=== PATIENT | female | born 1955 | race Caucasian/White ===

== ENCOUNTER 2016-06-17 14:53 | Emergency (ER) | payer OTHER ==
[~2016-06-17] VITALS: Ht 157.5 cm; Wt 98.0 kg
[2016-06-17 15:01] VITALS: Ht 157.5 cm; Wt 98.0 kg
--- NOTE | 2016-06-17 16:51 | ERD ---
ER Documentation Chief Complaint Date/Time DATE: 06/17/16 TIME: 16:47 Chief Complaint rash on the face allergic since and received atb in today HPI 60-year-old female patient with no significant past medical history presents to the ED complaining of a rash that started 5 days ago. Patient's son was with her at this time and stated that they followed up with a primary care physician and diagnosed her with rosacea. Patient has been taking doxycycline and metronidazole and states that the rash has been getting worse. Denies any sun exposure. States that it is very itchy. Son interpreted and states that since the rash got worse earlier today and it is getting crusty, they followed up with an urgent care today and was prescribed Keflex, Bactrim and Mupirocin. States that he wanted a second opinion at an ER to see a pest control service sales agent immediately and therefore presents here for further evaluation. Denies any fever, chills, headache, eye pain, blurred vision, diplopia, nausea, vomiting. ROS All systems reviewed and are negative except as per history of present illness. Allergies Allergies: Coded Allergies: No Known Allergy (Unverified , 06/17/16) Physical Exam Vitals Vital Signs Date Time Temp Pulse Resp B/P Pulse Ox O2 Delivery O2 Flow Rate FiO2 06/17/16 15:01 99.6 80 18 127/64 98 Physical Exam Const: Adj-iop-[id number], well-nourished. In no acute distress. Head: Atraumatic, normocephalic Eyes: Normal Conjunctiva without injection ENT: Normal external ear, nose and mouth. Neck: Full range of motion. No meningismus. Resp: Clear to auscultation bilaterally. No wheezing, rhonchi, rales, or crackles. No accessory muscle use. No retractions. Cardio: Regular rate and rhythm, no murmurs Skin: No petechiae, purpura. Honey crusted lesions noted on the chin region, blanching and some surrounding the forehead bilateral cheeks and chin. Slight purulent discharge noted. No bleeding noted. No fluctuance or induration. No lymphatic streaking. Back: No midline tenderness. No CVA tenderness. Ext: No cyanosis, or edema. Cap refill less than 2 seconds. Distal pulses intact bilaterally. Neur: Awake and alert. Normal gait and coordination. Muscle strength 5/5. Sensation intact bilaterally. Psych: Normal Mood and Affect Procedures/MDM This is a 60-year-old female patient with no significant past medical history presents the ED complaining of a rosacea flare. Patient is afebrile and nontoxic-appearing. I discussed with the patient and her son that she should discontinue taking doxycycline and metronidazole as these medications can worsen her rash due to the sun exposure. I stated that the Bactrim, Keflex and Mupirocin is sufficient medications for outpatient treatment. Patient strictly instructed to follow-up with a pest control service sales agent for further evaluation and treatment. Low suspicion for periorbital cellulitis. Low suspicion for scabies , SJS/TEN, erythema multiforme, sepsis, cellulitis, necrotizing fascitis, gangrene, meningococcemia or other emergent conditions. This case was discussed with my supervising physician, Dr. Carcamo who agreed with the management and discharge plan. Discharge medications: Please fill the prescription for Bactrim, Keflex, mupirocin. Follow up with primary care physician in 1-2 days for a referral to see a pest control service sales agent. Instructed patient to return to the ED sooner for any worsening symptoms. Patient's questions were answered. Patient understood and agreed with discharge plan. Patient discharged stable. Departure Diagnosis: Primary Impression: Rosacea Condition: Stable Patient Instructions: What Is Rosacea?, Treating Rosacea, Rosacea Referrals: [facility] YOU HAVE RECEIVED A MEDICAL SCREENING EXAM AND THE RESULTS INDICATE THAT YOU DO NOT HAVE A CONDITION THAT REQUIRES URGENT TREATMENT IN THE EMERGENCY DEPARTMENT. FURTHER EVALUATION AND TREATMENT OF YOUR CONDITION CAN WAIT UNTIL YOU ARE SEEN IN YOUR DOCTORS OFFICE WITHIN THE NEXT 1-2 DAYS. IT IS YOUR RESPONSIBILITY TO MAKE AN APPOINTMENT FOR FOL- CARE. IF YOU HAVE A PRIMARY DOCTOR --you should call your primary doctor and schedule an appointment IF YOU DO NOT HAVE A PRIMARY DOCTOR YOU CAN CALL OUR PHYSICIAN REFERRAL HOTLINE AT IF YOU CAN NOT AFFORD TO SEE A PHYSICIAN YOU CAN CHOSE FROM THE FOLLOWING [facility] CLINICS [facility] [address] [facility] [address] [facility] [address] [facility] [address] [facility] [address] [facility]. [facility]. [address] [facility]. [facility] YOU HAVE RECEIVED A MEDICAL SCREENING EXAM AND THE RESULTS INDICATE THAT YOU DO NOT HAVE A CONDITION THAT REQUIRES URGENT TREATMENT IN THE EMERGENCY DEPARTMENT. FURTHER EVALUATION AND TREATMENT OF YOUR CONDITION CAN WAIT UNTIL YOU ARE SEEN IN YOUR DOCTORS OFFICE WITHIN THE NEXT 1-2 DAYS. IT IS YOUR RESPONSIBILITY TO MAKE AN APPOINTMENT FOR FOLOW-UP CARE. IF YOU HAVE A PRIMARY DOCTOR --you should call your primary doctor and schedule and appointment IF YOU DO NOT HAVE A PRIMARY DOCTOR YOU CAN CALL OUR PHYSICIAN REFERRAL HOTLINE AT . IF YOU CAN NOT AFFORD TO SEE A PHYSICIAN YOU CAN CHOSE FROM THE FOLLOWING [facility] INSTITUTIONS: [facility] [address] [place] [address] [facility] [address] [place] [address] [facility] + [facility] [address] [place] [address] [facility] URGENT CARE/SPECIALTIES Additional Instructions: Call your primary care doctor TOMORROW for an appointment during the next 1-2 days for a referral to a pest control service sales agent. See the doctor sooner or return here if your condition worsens before your appointment time. HOOD PETERSEN PA-C June 17, 2016 16:51
== END 2016-06-17 15:30 | disposition home or self-care (01) ==
LOC: FTE 14:53 → E/R 15:30
DX: L71.9 Rosacea, unspecified (principal)
CPT/HCPCS: 99282

== ENCOUNTER 2017-01-14 10:29 | Emergency (ER) | payer OTHER ==
[~2017-01-14] VITALS: Wt 80.7 kg
--- NOTE | 2017-01-14 12:09 | ERD ---
ER Documentation Chief Complaint Chief Complaint PAIN ON LEFT RIB AREA S/P MECH FALL 10 DAYS AGO, NO SOB HPI This is a 61-year-old female who presents the emergency department today complaining of left-sided rib pain and some pain with inspiration for the past 10 days. Patient is here with her son who reports that patient was getting his child out of the crib when her foot slipped and fell and she landed on the left side of the crib. Denies any fevers or chills or cough. She has not taken any medication for the pain. They went to urgent care this morning but their x-ray machine was down. ROS All systems reviewed and are negative except as per history of present illness. Medications Home Meds Active Scripts Acetaminophen* (Tylophen*) 500 Mg Capsule, 1 CAP PO Q6H Y for PAIN AND OR ELEVATED TEMP, #30 CAP Prov:HUNG SMITH PA-C 01/14/17 Naproxen* (Naprosyn*) 500 Mg Tablet, 500 MG PO BID Y for PAIN AND/OR INFLAMMATION, #30 TAB Prov:HUNG SMITH PA-C 01/14/17 Allergies Allergies: Coded Allergies: No Known Allergy (Unverified , 06/17/16) PMhx/Soc History of Surgery: Yes (FACIAL SURGERY 2013) Anesthesia Reaction: No Hx Neurological Disorder: No Hx Respiratory Disorders: No Hx Cardiac Disorders: Yes (HTN, HYPERLIPIDEMIA) Hx Psychiatric Problems: No Hx Miscellaneous Medical Probl: No Hx Alcohol Use: No Hx Substance Use: No Hx Tobacco Use: No Smoking Status: Never smoker Physical Exam Vitals Vital Signs Date Time Temp Pulse Resp B/P Pulse Ox O2 Delivery O2 Flow Rate FiO2 01/14/17 10:35 97.6 51 18 178/79 98 Physical Exam Const: NAD Head: Atraumatic Eyes: Normal Conjunctiva ENT: Normal External Ears, Nose and Mouth. Neck: Full range of motion..~ No meningismus. Resp: Clear to auscultation bilaterally no absent breath sounds. No wheezing. Tenderness to palpation left side of ribs. Cardio: Regular rate and rhythm, no murmurs Abd: Soft, non tender, non distended. Normal bowel sounds Skin: No petechiae or rashes Neur: Awake and alert Psych: Normal Mood and Affect Results 24 hrs DIAGNOSTIC IMAGING REPORT Patient: TEMITOPE MELO : 1955 Age: 61 Sex: F MR #: [id number] DOS: 01/14/17 0000 Ordering MD: HUNG SMITH PA-C Location: [facility] Room/Bed: PROCEDURE: Chest x-ray CLINICAL INDICATION: Fall with chest pain TECHNIQUE: Chest single view COMPARISON: None FINDINGS: The heart is normal in size. The pulmonary vessels are normal in caliber. The lungs are clear. The costophrenic angles are sharp. The visualized bony thorax is unremarkable. IMPRESSION: No acute cardiopulmonary disease. No evidence of pneumothorax RPTAT: HH .Prince Carr MD, MD Date Time Electronically viewed and signed by .Prince Carr MD, MD on 01/14/2017 12:16 .W/ CC: HUNG SMITH PA-C DIAGNOSTIC IMAGING REPORT Patient: TEMITOPE MELO : 1955 Age: 61 Sex: F MR #: [id number] DOS: 01/14/17 0000 Ordering MD: HUNG SMITH PA-C Location: [facility] Room/Bed: PROCEDURE: XR Ribs. CLINICAL INDICATION: Pain TECHNIQUE: Multiple oblique views of the left ribs were obtained. The images were reviewed on a PACS workstation. COMPARISON: None. FINDINGS: Rib series demonstrates no displaced rib fracture. No pneumothorax is seen. The underlying lung is clear. IMPRESSION: No displaced rib fracture identified RPTAT: HH .Prince Carr MD, MD Date Time Electronically viewed and signed by .Prince Carr MD, MD on 01/14/2017 12:17 .W/ CC: HUNG SMITH PA-C Procedures/MDM This is a a 61-year-old female who presents the emergency department today complaining of left-sided rib pain with deep inspiration secondary to mechanical fall. Given patient's complaints and duration of symptoms I did obtain a chest x-ray dedicated rib series. Chest x-ray no acute cardiopulmonary disease. There is no evidence of pneumothorax. Dedicated left-sided rib series unremarkable. There is no displaced rib fracture. There is no pneumothorax. Symptoms at this time is consistent with contusion. There is no evidence of acute fracture or dislocation. No evidence of pneumonia, PE, abscess, pleural effusion, pneumothorax. Patient declined pain medicine here in the emergency department. She will be given a prescription for Naprosyn and Tylenol for home. At this time the patient is stable for discharge and outpatient management. Patient should follow up with their PCP in the next 1-2 days. They may return to the emergency department sooner for any persistent or worsening of symptoms. Patient and son understood and agreed with the plan. Departure Diagnosis: Primary Impression: Rib injury Additional Impression: Fall Encounter type: initial encounter Qualified Code: W19.XXXA - Fall, initial encounter Condition: Fair HUNG SMITH PA-C Jan 14, 2017 12:09
--- NOTE | 2017-01-14 12:17 | RADRPT ---
PROCEDURE: Chest x-ray CLINICAL INDICATION: Fall with chest pain TECHNIQUE: Chest single view COMPARISON: None FINDINGS: The heart is normal in size. The pulmonary vessels are normal in caliber. The lungs are clear. Th e costophrenic angles are sharp. The visualized bony thorax is unremarkable. IMPRESSION: No acute cardiopulmonary disease. No evidence of pneumothorax RPTAT: HH .Prince Carr MD, Date Time Electronically viewed and signed by .Prince Carr MD, MD on 01/14/2017 12:16 .W/
--- NOTE | 2017-01-14 12:18 | RADRPT ---
PROCEDURE: XR Ribs. CLINICAL INDICATION: Pain TECHNIQUE: Multiple oblique views of the left ribs were obtained. The images were reviewed on a [employer] workstation. COMPARISON: None. FINDINGS: Rib series demonstrates no displaced rib fracture. No pneumothorax is seen. The underlying lung is clear. IMPRESSION: No displaced rib fracture identified RPTAT: HH .Prince Carr MD, Date Time Electronically viewed and signed by .Prince Carr MD, MD on 01/14/2017 12:17 .W/
[2017-01-14] MEDS ORDERED: NAPR-260 PO (12:23)
[2017-01-14] MEDS ORDERED: ACET500C5 PO (12:24)
== END 2017-01-14 12:33 | disposition home or self-care (01) ==
LOC: FTE 10:29
DX: S29.9XXA Unspecified injury of thorax, initial encounter (principal); I10 Essential (primary) hypertension; W01.0XXA Fall on same level from slipping, tripping and stumbling without subsequent striking against object, initial encounter; Y92.9 Unspecified place or not applicable
CPT/HCPCS: 71010; 71100; Z7502

== ENCOUNTER 2017-04-01 12:16 | Emergency (ER) | END 2017-04-01 13:40 | disposition home or self-care (01) ==

== ENCOUNTER 2017-06-02 19:06 | Emergency (ER) | END 2017-06-02 20:11 | disposition home or self-care (01) ==